=== PATIENT | female | born 1975 | race Caucasian/White ===

== ENCOUNTER 2017-05-10 19:09 | Emergency (ER) | payer OTHER ==
[~2017-05-10] VITALS: Ht 162.6 cm; Wt 137.5 kg
[2017-05-10 19:21] VITALS: TEMP 36.7; Ht 162.6 cm; Wt 137.5 kg
[2017-05-10] MEDS ORDERED: FLUT0.15 NAE (19:42)
[2017-05-10] MEDS ORDERED: SYN150 PO (19:42)
[2017-05-10] MEDS ORDERED: [UNRECOGNIZED DRUG - CODE] PO (19:42)
[2017-05-10] MEDS ORDERED: DPPI400 INJ (19:42)
[2017-05-10] MEDS ORDERED: CALC500T9 PO (19:42)
[2017-05-10] MEDS ORDERED: FERR1TAB13 PO (19:42)
[2017-05-10] MEDS ORDERED: SODIUM CHLORIDE 0.9% 1000ML 2,000 ML IV STA (20:11)
[2017-05-10] MEDS ORDERED: ONDANSETRON INJ 2 MG/ML 2 ML VIAL IV STA (20:11)
--- NOTE | 2017-05-10 20:25 | EMERGENCY ROOM VISIT NOTE ---
History Report prepared by Myra: Giselle Shook Under the Supervision of: Dr. Chela Joseph M.D. First contact with patient: 19:53 Chief Complaint: BACK PAIN Stated Complaint: BACK PAIN History of Present Illness The patient is a 42 year old female who presents to the Emergency Room with complaints of constant back pain beginning 2 days ago. The patient states that she has not been feeling well for the last 4 days. She reports that she has had diarrhea, nausea and abdominal pain and 2 days ago she was seen at the [facility] and was sent home after giving a urine sample that she does not know the results of. The patient states that her back pain has worsened over the last 2 days and is worsened with movement. She notes that she has been urinating less frequently and has been drinking more fluids than usual. The patient states that she has a history of gastric bypass, section, cyst removed, and cholecystectomy. She denies any vomiting and dysuria. Source of History: patient Onset: 2 days ago Position: back Timing: constant Modifying Factors (Worsening): movement Associated Symptoms: + nausea, + abdominal pain, + diarrhea, No vomiting Review of Systems See HPI for pertinent positives & negatives. A total of 10 systems reviewed and were otherwise negative. Past Medical & Surgical Surgical Problems: (1) H/O gastric bypass (2) Hx of cholecystectomy (3) Previous section Family History No pertinent family history stated. Social History Smoking Status: Former Smoker Marital Status: Housing Status: lives with family Current/Historical Medications Scheduled Calcium Carbonate-Vitamin D (Oysco 500+D), 1 TAB PO BID Ferrous Sulfate (Kp Ferrous Sulfate), 325 MG PO BID Fexofenadine HCl (Allergy Relief), 60 MG PO QAM Fluticasone Propionate (Nasal) (Flonase Allergy Relief), 1 SPRAYS RAIZA BID Levothyroxine Sodium (Synthroid), 150 MCG PO QAM Medroxyprogesterone Acetate (Depo-Provera), 1 DOSE INJ Q12WKS Scheduled PRN Oxycodone Immediate Rel Tab (Roxicodone Ir), 1-2 TAB PO Q4H PRN for Severe Pain Allergies Coded Allergies: No Known Allergies (Unverified , 05/10/17) Physical Exam Vital Signs Date Time Temp Pulse Resp B/P (MAP) Pulse Ox O2 Delivery O2 Flow Rate FiO2 05/10/17 23:32 71 16 128/82 96 7/24/17 23:13 71 16 128/82 96 Room Air 05/10/17 21:47 70 20 137/81 98 Room Air 05/10/17 21:03 79 05/10/17 19:21 36.7 76 20 170/111 96 Room Air Physical Exam Vital signs reviewed. General: Well-appearing female, obese, in no significant distress. HEENT: No scleral icterus, PERRLA, neck supple. Atraumatic. Cardiovascular: Regular rate and rhythm, no extra sounds. Pulmonary: Clear to auscultation bilaterally, normal work of breathing. Abdomen: Soft, tender to palpation over the epigastrium, nondistended, positive bowel sounds. Musculoskeletal: Atraumatic, no peripheral edema. Neurologic: Patient awake alert and oriented x 3, full strength in all 4 extremities. Cranial nerves 2 through 12 grossly intact. Skin: Warm, dry, no rash Medical Decision & Procedures ER Provider Diagnostic Interpretation: Radiology results as stated below per my review and radiologist interpretation: CT SCAN OF THE ABDOMEN AND PELVIS WITH IV CONTRAST FINDINGS: Lung bases: The heart is normal in size and without pericardial effusion. A calcified granuloma is seen in the left lower lobe. The lung bases are otherwise clear. Liver: The contrast-enhanced liver is enlarged, measuring 21.2 cm in length. The liver is otherwise normal in contour and attenuation. There is mild central intrahepatic biliary ductal dilatation. The hepatic veins and portal veins are patent. Gallbladder: Surgically absent noting clips in the gallbladder fossa. Spleen: Normal in size and attenuation. Pancreas: Unremarkable. Adrenal glands: Unremarkable. Kidneys: The contrast enhanced kidneys demonstrate mild cortical atrophy. There is a 4 mm obstructing calculus at the right vesicoureteral junction seen on axial image #405. This causes mild right-sided hydronephrosis. There are least 4 additional nonobstructing right renal calculi measuring up to 3 mm. No left or a calculi are seen on this contrast-enhanced examination. The kidneys enhance symmetrically. No left-sided hydronephrosis is seen. Parapelvic cysts are noted on the left. Abdominal vasculature: The abdominal aorta is normal in course and caliber. Stomach and bowel: A small hiatal hernia is identified. There are postoperative changes consistent with a history of Brenna-en-Y gastric bypass surgery. No bowel obstruction is seen. There is mild colonic diverticulosis without CT evidence of acute diverticulitis. The appendix is normal as visualized. Peritoneum: There is no intraperitoneal free air or abdominal ascites. There is diastases of the rectus abdominis musculature. Lymphadenopathy: None. Pelvic viscera: The bladder is normal as visualized. The uterus and adnexa are normal in appearance noting bilateral ovarian follicles. Skeletal structures: No lytic or blastic lesions are seen. IMPRESSION: 1. There is a 4 mm obstructing calculus at the right vesicoureteral junction. This causes only mild right-sided hydronephrosis. 2. At least 4 additional nonobstructing right renal calculi are noted. No left renal calculi are clearly seen. 3. There are postoperative changes from a Brenna-en-Y gastric bypass procedure. No bowel obstruction is identified. 4. Hepatomegaly. 5. Mild colonic diverticulosis without CT evidence of acute diverticulitis. 6. Additional findings as above. Electronically signed by: Chris Velez M.D. 05/10/2017 10:51 PM Dictated Date/Time: 05/10/2017 10:42 PM Laboratory Results 05/10/17 20:20 Red Blood Count 4.70, Mean Corpuscular Volume 88.3, Mean Corpuscular Hemoglobin 28.3, Mean Corpuscular Hemoglobin Concent 32.0, Mean Platelet Volume 10.6, Neutrophils (%) (Auto) 59.6, Lymphocytes (%) (Auto) 21.3, Monocytes (%) (Auto) 17.5, Eosinophils (%) (Auto) 0.7, Basophils (%) (Auto) 0.5, Neutrophils # (Auto ) 3.27, Lymphocytes # (Auto) 1.17, Monocytes # (Auto) 0.96, Eosinophils # (Auto ) 0.04, Basophils # (Auto) 0.03 05/10/17 20:20 Test 05/10/17 20:20 05/10/17 21:52 White Blood Count 5.49 K/uL (4.8-10.8) Red Blood Count 4.70 M/uL (4.2-5.4) Hemoglobin 13.3 g/dL (12.0-16.0) Hematocrit 41.5 % (37-47) Mean Corpuscular Volume 88.3 fL (80-100) Mean Corpuscular Hemoglobin 28.3 pg (25-34) Mean Corpuscular Hemoglobin Concent 32.0 g/dl (32-36) Platelet Count 305 K/uL (130-400) Mean Platelet Volume 10.6 fL (7.4-10.4) Neutrophils (%) (Auto) 59.6 % Lymphocytes (%) (Auto) 21.3 % Monocytes (%) (Auto) 17.5 % Eosinophils (%) (Auto) 0.7 % Basophils (%) (Auto) 0.5 % Neutrophils # (Auto) 3.27 K/uL (1.4-6.5) Lymphocytes # (Auto) 1.17 K/uL (1.2-3.4) Monocytes # (Auto) 0.96 K/uL (0.11-0.59) Eosinophils # (Auto) 0.04 K/uL (0-0.5) Basophils # (Auto) 0.03 K/uL (0-0.2) RDW Standard Deviation 45.7 fL (36.4-46.3) RDW Coefficient of Variation 13.9 % (11.5-14.5) Immature Granulocyte % (Auto) 0.4 % Immature Granulocyte # (Auto) 0.02 K/uL (0.00-0.02) Anion Gap 6.0 mmol/L (3-11) Est Creatinine Clear Calc Drug Dose 133.7 ml/min Estimated GFR () 112.1 Estimated GFR (Non- 96.8 BUN/Creatinine Ratio 17.9 (10-20) Calcium Level 8.8 mg/dl (8.5-10.1) Magnesium Level 2.1 mg/dl (1.8-2.4) Total Bilirubin 0.2 mg/dl (0.2-1) Direct Bilirubin < 0.1 mg/dl (0-0.2) Aspartate Amino Transf (AST/SGOT) 13 U/L (15-37) Alanine Aminotransferase (ALT/SGPT) 23 U/L (12-78) Alkaline Phosphatase 111 U/L (45-117) Total Protein 6.9 gm/dl (6.4-8.2) Albumin 3.2 gm/dl (3.4-5.0) Lipase 143 U/L (73-393) Urine Color YELLOW Urine Appearance CLOUDY (CLEAR) Urine pH 6.0 (4.5-7.5) Urine Specific [place] 1.009 (1.000-1.030) Urine Protein TRACE (NEG) Urine Glucose (UA) NEG (NEG) Urine Ketones NEG (NEG) Urine Occult Blood 3+ (NEG) Urine Nitrite NEG (NEG) Urine Bilirubin NEG (NEG) Urine Urobilinogen NEG (NEG) Urine Leukocyte Esterase NEG (NEG) Urine WBC (Auto) 1-5 /hpf (0-5) Urine RBC (Auto) >30 /hpf (0-4) Urine Hyaline Casts (Auto) 1-5 /lpf (0-5) Urine Epithelial Cells (Auto) >30 /lpf (0-5) Urine Bacteria (Auto) NEG (NEG) Urine Yeast (Auto) PRESENT (NONE PRSENT) Laboratory results per my review. Medications Administered Medications (Trade) Dose Ordered Sig/Kallie Route Start Time Stop Time Status Last Admin Dose Admin Sodium Chloride 2,000 ml @ 999 mls/hr Q2H1M STAT IV 05/10/17 20:11 05/10/17 22:11 DC 05/10/17 20:35 999 MLS/HR Ondansetron HCl (Zofran Inj) 4 mg NOW STAT IV 05/10/17 20:11 05/10/17 20:14 DC 05/10/17 20:35 4 MG Potassium Chloride (Kcl 10 Meq / Wtr) 20 meq NOW STAT IV 05/10/17 21:36 05/10/17 21:37 DC 05/10/17 21:44 20 MEQ Oxycodone HCl (Roxicodone Immediate Rel 5MG Home Pack) 1 homepack UD ONCE PO 05/10/17 23:30 05/10/17 23:31 DC 05/10/17 23:29 1 HOMEPACK ED Course 1952: Past medical records reviewed. The patient was evaluated in room C6. A complete history and physical examination was performed. 2010: Zofran Inj 4mg IV, Sodium Chloride 2000 ml @ 999 mls/hr IV. 2135: Potassium Chloride 20meq IV. 2226: I reevaluated and updated the patient. 2303: I updated and reevaluated the patient. 2: Upon reevaluation, the patient appeared to have improvement of her symptoms. I discussed findings with the patient. She verbalized agreement of the treatment plan. The patient was discharged home. Medical Decision Differential diagnosis includes dehydration, viral illness, UTI, bowel obstruction, , and electrolyte abnormality. This patient was evaluated and appeared to be in no significant distress. She stated she was stuck "15 times" at [facility] yesterday when she was therefore evaluation. They were not able to obtain blood. An EJ was placed by myself. Blood was obtained and IV hydration was initiated by nursing staff. Laboratory work reveals a hypokalemia. Patient was hydrated with 2 L of normal saline solution. Urinalysis is significant for blood. CT scan abdomen and pelvis reveals a 4 mm right ureteral calculus. The patient was informed of the findings. She states she does have a urologist follow-up with. She has had kidney stones in the past. She was discharged with pain medication and will return to the emergency department for worsening of symptoms or any medical concerns. Medication Reconcilliation Current Medication List: was personally reviewed by me Blood Pressure Screening Patient's blood pressure: Elevated blood pressure Blood pressure disposition: Elevated BP felt to be situational Impression Primary Impression: Kidney stone Scribe Attestation The scribe's documentation has been prepared under my direction and personally reviewed by me in its entirety. I confirm that the note above accurately reflects all work, treatment, procedures, and medical decision making performed by me. Departure Information Dispostion Home / Self-Care Prescriptions Oxycodone Immediate Rel Tab (ROXICODONE IR) 5 Mg Tab 1-2 TAB PO Q4H Y for Severe Pain, #24 TAB Prov: Chela Joseph M.D. 05/10/17 Referrals No Doctor, Assigned (PCP) Forms HOME CARE DOCUMENTATION FORM, IMPORTANT VISIT INFORMATION Patient Instructions Kidney Stones - [facility], [facility] Additional Instructions Diagnosis: Kidney stone, right ureteral Strain all of your urine and take the stone for analysis. Increase fluids. Tylenol 650 mg every 6 hours as needed for pain (Maximum 3000 mg Tylenol in 24 hr period). Oxy IR 1-2 tablets every 4-6 hrs as needed for worse pain. No driving, working, or alcohol use with Oxy IR. Follow up with your urologist if it has not passed in 5-7 days or sooner for worsening symptoms. Follow up sooner for fever >101, vomiting, or significant increase in pain not controlled with medication.
[2017-05-10] MEDS ORDERED: OPTIRAY 320 IV PRN (20:30)
[2017-05-10 20:37] LABS: BASO % 0.5 %; BASO ABS # 0.03 K/uL (0-0.2); COMPLETE YES; EOS % 0.7 %; HEMATOCRIT 41.5 % (37-47); IG% 0.4 %; LYMPH % 21.3 %; LYMPH ABS # 1.17 K/uL (1.2-3.4); MEAN CELL VOLUME 88.3 fL (80-100); MEAN CORPUSCULAR HEMOGLOBIN 28.3 pg (25-34); MEAN PLATELET VOLUME 10.6 fL (7.4-10.4); MONO % 17.5 %; NEUT % 59.6 %; PLATELET COUNT 305 K/uL (130-400); WHITE BLOOD COUNT 5.49 K/uL (4.8-10.8)
[2017-05-10 20:53] LABS: ALT/SGPT 23 U/L (12-78); BLOOD UREA NITROGEN 14 mg/dl (7-18); BUN/CREATININE RATIO 17.9 (10-20); CALCIUM 8.8 mg/dl (8.5-10.1); CARBON DIOXIDE 29 mmol/L (21-32); CHLORIDE 105 mmol/L (98-107); CREATININE 0.76 mg/dl (0.60-1.20); GLUCOSE 111 mg/dl (70-99); MAGNESIUM 2.1 mg/dl (1.8-2.4); POTASSIUM 3.1 mmol/L (3.5-5.1); SODIUM 140 mmol/L (136-145)
[2017-05-10 20:56] LABS: ALKALINE PHOSPHATASE 111 U/L (45-117); AST/SGOT 13 U/L (15-37)
[2017-05-10] MEDS ORDERED: POTASSIUM CHLORIDE 10 MEQ / 100ML WTR IV STA (21:36)
[2017-05-10 22:01] LABS: URINE APPEARANCE CLOUDY (CLEAR); URINE BILIRUBIN NEG (NEG); URINE COLOR YELLOW; URINE EPITHELIAL CELL AUTO >30 /lpf (0-5); URINE NITRITE NEG (NEG); URINE SPECIFIC GRAVITY 1.009 (1.000-1.030); UROBILINOGEN NEG (NEG); ZZUR CULT IF INDIC CLEAN CATCH YES
[2017-05-10 22:02] LABS: MANUAL MICROSCOPIC REQUIRED? NO; REVIEW REQ? YES
--- NOTE | 2017-05-10 22:52 | DIAGNOSTIC IMAGING REPORT ---
CT SCAN OF THE ABDOMEN AND PELVIS WITH IV CONTRAST CLINICAL HISTORY: Nausea. Generalized abdominal pain. COMPARISON STUDY: No priors. TECHNIQUE: Following the IV administration of 116 cc of Optiray 320, CT scan of the abdomen and pelvis is performed from the lung bases to the proximal femora. Images are reviewed in the axial, sagittal, and coronal planes. IV contrast was administered without complication. Automated dose control exposure was utilized. A dose lowering technique was utilized adhering to the principles of ALARA. The examination is degraded by large body habitus, and by streak artifact from the body wall abutting the CT gantry. CT DOSE: 1722.93 mGy.cm FINDINGS: Lung bases: The heart is normal in size and without pericardial effusion. A calcified granuloma is seen in the left lower lobe. The lung bases are otherwise clear. Liver: The contrast-enhanced liver is enlarged, measuring 21.2 cm in length. The liver is otherwise normal in contour and attenuation. There is mild central intrahepatic biliary ductal dilatation. The hepatic veins and portal veins are patent. Gallbladder: Surgically absent noting clips in the gallbladder fossa. Spleen: Normal in size and attenuation. Pancreas: Unremarkable. Adrenal glands: Unremarkable. Kidneys: The contrast enhanced kidneys demonstrate mild cortical atrophy. There is a 4 mm obstructing calculus at the right vesicoureteral junction seen on axial image #405. This causes mild right-sided hydronephrosis. There are least 4 additional nonobstructing right renal calculi measuring up to 3 mm. No left or a calculi are seen on this contrast-enhanced examination. The kidneys enhance symmetrically. No left-sided hydronephrosis is seen. Parapelvic cysts are noted on the left. Abdominal vasculature: The abdominal aorta is normal in course and caliber. Stomach and bowel: A small hiatal hernia is identified. There are postoperative changes consistent with a history of Brenna-en-Y gastric bypass surgery. No bowel obstruction is seen. There is mild colonic diverticulosis without CT evidence of acute diverticulitis. The appendix is normal as visualized. Peritoneum: There is no intraperitoneal free air or abdominal ascites. There is diastases of the rectus abdominis musculature. Lymphadenopathy: None. Pelvic viscera: The bladder is normal as visualized. The uterus and adnexa are normal in appearance noting bilateral ovarian follicles. Skeletal structures: No lytic or blastic lesions are seen. IMPRESSION: 1. There is a 4 mm obstructing calculus at the right vesicoureteral junction. This causes only mild right-sided hydronephrosis. 2. At least 4 additional nonobstructing right renal calculi are noted. No left renal calculi are clearly seen. 3. There are postoperative changes from a Brenna-en-Y gastric bypass procedure. No bowel obstruction is identified. 4. Hepatomegaly. 5. Mild colonic diverticulosis without CT evidence of acute diverticulitis. 6. Additional findings as above. Electronically signed by: Chris Velez M.D. 05/10/2017 10:51 PM Dictated Date/Time: 05/10/2017 10:42 PM
[2017-05-10] MEDS ORDERED: OXYC1TAB3 PO (23:20)
[2017-05-10] MEDS ORDERED: OXYCODONE IR HOME PACK PO ONE (23:30)
[2017-05-10 23:32] VITALS: BP 128/82; PULSE 71; O2SAT 96
== END 2017-05-10 23:34 | disposition home or self-care (01) ==
LOC: MERGE 19:13 → C.EDB 19:13 → C.EDC 23:34
DX: N13.2 Hydronephrosis with renal and ureteral calculous obstruction (principal); Z98.84 Bariatric surgery status; Z90.49 Acquired absence of other specified parts of digestive tract; Z87.891 Personal history of nicotine dependence; E66.9 Obesity, unspecified; Z68.43 Body mass index [BMI] 50.0-59.9, adult; Z79.899 Other long term (current) drug therapy; Z79.3 Long term (current) use of hormonal contraceptives

== ENCOUNTER 2023-06-12 12:36 | Observation (INO) ==
[2023-06-12 13:26] LABS: Basophils # (auto) 0.03 K/uL (0.00-0.20); Basophils % (auto) 0.3 %; Eosinophils # (auto) 0.13 K/uL (0.00-0.50); Eosinophils % (auto) 1.5 %; Hematocrit (blood only) 39.7 % (37.0-47.0); Hemoglobin 12.9 g/dl (12.0-16.0); Immature Granulocytes # (auto) 0.03 K/uL (0.01-0.20); Immature Granulocytes % (auto) 0.3 %; Lymphocytes % (auto) 10.3 %; Mean Corpuscular Hemoglobin 29.5 pg (25.0-34.0); Mean Corpuscular Hgb Conc 32.5 g/dL (32.0-36.0); Mean Corpuscular Volume 90.6 fL (80.0-100.0); Mean Platelet Volume 10.8 fL (9.4-12.4); Monocytes # (auto) 0.41 K/uL (0.11-0.59); Monocytes % (auto) 4.7 %; Neutrophils # (auto) 7.22 K/uL (1.40-6.50); Neutrophils % (auto) 82.9 %; Platelet Count 262 K/uL (130-400); RDW Coefficient of Variation 13.6 % (11.5-14.5); RDW Standard Deviation 45.3 fL (36.4-46.3); Red Blood Count 4.38 M/uL (4.20-5.40); White Blood Count 8.72 K/ul (4.8-10.8)
[2023-06-12] MEDS ORDERED: SODIUM CHLORIDE 0.9% 1000ML 1,000 ML IV ONE (13:50)
[2023-06-12 13:55] LABS: Albumin Globulin Ratio 1.5 (0.9-2); Albumin Level 4.4 gm/dl (3.4-5.0); BUN Creatinine Ratio 26.8 (10-20); Bilirubin,Total 0.4 mg/dl (0.2-1.0); Calcium 9.3 mg/dl (8.6-10.3); Creatinine Clr Calc Pharmacy 185.4 ml/min; Est GFR (African American) 127.8 ml/min; Est GFR (Non-African American) 110.3 ml/min; Globulin 2.9 gm/dl (2.5-4.0); Potassium 4.1 mmol/L (3.5-5.1); Total Protein 7.3 gm/dl (6.0-8.3)
--- NOTE | 2023-06-12 13:56 | XRay Report ---
XR chest 1V portable CLINICAL HISTORY: Chest pain, nonspecific COMPARISON STUDY: Chest radiograph June 06, 2023. Chest CTA June 07, 2023. FINDINGS: Lung volumes are normal. Lungs are clear. There is no pneumothorax or pleural effusion. Mil d cardiomegaly is unchanged. Mediastinal contours are normal. There is no evidence for pulmonary jorge a. IMPRESSION: No acute cardiopulmonary findings. No change in appearance of the chest. ACT 112: Negative or not required by law. Electronically signed by: Ravin Dick M.D. 06/12/2023 1:54 PM
[2023-06-12] MEDS ORDERED: ONDANSETRON INJ 2 MG/ML 2 ML VIAL IV STA (13:58)
[2023-06-12] MEDS ORDERED: LORazepam 2 MG/1 ML VIAL IV STA (13:58)
[2023-06-12 14:00] LABS: Partial Thromboplastin Time 28.2 Seconds (21.0-31.0); Prothrombin Time 10.8 Seconds (9.0-12.0)
[2023-06-12 14:03] LABS: Troponin I High Sensitivity 4.8 pg/ml (0-14)
--- NOTE | 2023-06-12 14:04 | Emergency Department Note ---
History of Present Illness General Chief complaint: Vertigo Stated complaint: CHEST PAIN, VOMITING Time Seen by Provider: 06/12/23 13:47 History of Present Illness Maximum Pain Intensity: 4 48-year-old female presents emergency department with an onset of vertigo that started this morning when she woke up. Patient states that she was extremely dizzy had nausea and dry heaves. Patient denies any specific vomiting. Patient of note was in our emergency department 4 days ago for upper abdominal pain and had a full cardiac and abdominal work-up at that time that was unremarkable. Patient states that she has had a prior history of vertigo she used to use meclizine and physical therapy. Patient does relate tinnitus and decreased hearing in both years which is chronic. Patient states when she turns her head she gets more vertiginous. Patient denies slurred speech blurred vision shortness of breath abdominal pain. Patient states after dry heaving she had substernal chest pressure that was nonradiating. Patient denies any specific abdominal pain denies diarrhea denies urinary symptoms. Denies back pain. Patient denies any current neck pain or recent trauma. There are no other mitigating or alleviating factors Home Medications Medication Instructions Recorded Confirmed Type medroxyprogesterone 150 mg/mL 150 mg IM DIRECTED 09/13/19 06/12/23 History intramuscular suspension (Depo-Provera) amlodipine 5 mg tablet 5 mg PO HS 02/02/23 06/12/23 History colchicine (gout) 0.6 mg tablet 0.6 mg PO BID #180 tabs 06/07/23 06/12/23 Rx diclofenac sodium 1 % topical gel 2 g topical DIRECTED PRN Pain 06/07/23 06/12/23 History ibuprofen 200 mg tablet 400 mg PO Q8H Pain 06/07/23 06/12/23 History levothyroxine 50 mcg tablet 50 mcg PO QAM 06/07/23 06/12/23 History lisinopril 5 mg tablet 5 mg PO QAM 06/07/23 06/12/23 History oxycodone 10 mg tablet 10 mg PO DAILY PRN Pain 06/07/23 06/12/23 History pediatric multivitamin 1 tab PO DAILY 06/07/23 06/12/23 History no.226-ferrous sulfate 18 mg chewable tablet (Flintstones with Extra Iron) Allergies Allergy/AdvReac Type Severity Reaction Status Date / Time adhesive tape Allergy Intermediate SKIN WILL Verified 06/12/23 15:31 PEEL OFF IF LEFT ON TOO LONG Past Med/Surg History Medical History (Updated 06/12/23 @ 15:36 by Leandro Shah DO) Cardiac murmur No h/o echo, noted soft I/ at [facility] on exam at [facility]. Diverticular disease MILD, NO H/O INFECTION Heart palpitations Occasional sensation of heart racing. Hypothyroidism Osteoarthritis Sleep apnea DOESN'T USE CPAP, CHRONIC SINUSITIS, AND FEELS ASYMPTOMATIC. Thyroid cancer S/P TOTAL THYROIDECTOMY Vertigo Surgical History H/O gastric bypass History of bilateral tubal ligation JUST RIGHT SIDE WITH OVARY History of carpal tunnel release BILAT History of thyroidectomy, total History of tonsillectomy Hx of cholecystectomy Hx of ovarian cystectomy Previous section Family History Father Diabetes Mother Diabetes Grandmother Stroke Grandfather Stroke Social History Smoking Status: Former smoker Second Hand Exposure: Yes; Do You Dip or Chew Tobacco: No; Hx Alcohol Use: Yes (very rare) Hx Substance Use: No Preferred Language: Mohawk Communication Ability: Effective Destination Sign Repairer Required: No Beliefs That Will Affect Care: None Current Living Situation: Spouse and Family Feels Safe at Home: Yes Assistive Devices: None Review of Systems A total of 10 systems reviewed and were otherwise negative Constitutional: no fever Ear, Nose, Mouth, Throat: + tinnitus and + hearing loss; no sinus pain/pressure Respiratory: no cough Cardiovascular: + chest pain Gastrointestinal: + nausea Physical Exam Vital Signs Vital Signs - 24 hr 06/12/23 12:41 06/12/23 13:24 06/12/23 13:35 Temperature 36.4 C L Temperature Source Oral Pulse Rate 57 L 52 L Respiratory Rate 20 Respiratory Effort / Characteristics Non-Labored Spontaneous Respiratory Depth Normal Respiratory Pattern Regular Blood Pressure 143/85 H Blood Pressure Mean 104 Pulse Oximetry 94 98 Oxygen Delivery Method Room Air Room Air Sepsis Recent Fever Within 48 Hours No Sepsis New/Unexplained Change in Mental Status N/A Sepsis Action Taken by Nursing No Action Required 06/12/23 13:30 06/12/23 13:31 06/12/23 13:31 Temperature Temperature Source Pulse Rate 62 63 Respiratory Rate 24 15 Respiratory Effort / Characteristics Respiratory Depth Respiratory Pattern Blood Pressure 151/79 H Blood Pressure Mean 103 Pulse Oximetry Oxygen Delivery Method Sepsis Recent Fever Within 48 Hours Sepsis New/Unexplained Change in Mental Status Sepsis Action Taken by Nursing 06/12/23 13:40 06/12/23 13:50 06/12/23 14:00 Temperature Temperature Source Pulse Rate 43 L 52 L Respiratory Rate 18 14 Respiratory Effort / Characteristics Respiratory Depth Respiratory Pattern Blood Pressure 147/84 H Blood Pressure Mean 105 Pulse Oximetry Oxygen Delivery Method Sepsis Recent Fever Within 48 Hours Sepsis New/Unexplained Change in Mental Status Sepsis Action Taken by Nursing 06/12/23 14:00 06/12/23 14:10 06/12/23 14:32 Temperature Temperature Source Pulse Rate 57 L 46 L 68 Respiratory Rate 14 14 14 Respiratory Effort / Characteristics Respiratory Depth Respiratory Pattern Blood Pressure Blood Pressure Mean Pulse Oximetry Oxygen Delivery Method Sepsis Recent Fever Within 48 Hours Sepsis New/Unexplained Change in Mental Status Sepsis Action Taken by Nursing 06/12/23 14:40 Temperature Temperature Source Pulse Rate 65 Respiratory Rate 18 Respiratory Effort / Characteristics Respiratory Depth Respiratory Pattern Blood Pressure Blood Pressure Mean Pulse Oximetry Oxygen Delivery Method Sepsis Recent Fever Within 48 Hours Sepsis New/Unexplained Change in Mental Status Sepsis Action Taken by Nursing GENERAL: Patient is awake alert in no acute distress patient is resting comfortably and showing no signs of anxiety EYES: The conjunctivae are clear. The pupils are round and reactive. EARS, NOSE, MOUTH AND THROAT: The nose is without any evidence of any deformity. Mucous membranes are moist. Tongue is midline. TMs are clear bilaterally NECK: The neck is nontender and supple. Full range of motion nontender no meningismus RESPIRATORY: Normal respiratory effort is noted there is no evidence of wheezing rhonchi or rales CARDIOVASCULAR: Regular rate and rhythm noted there no murmurs rubs or gallops normal S1 normal S2. GASTROINTESTINAL: The abdomen is soft. Abdomen is nontender. No rebound rigidity or guarding BACK: No midline tenderness or or step-off noted range of motion in flexion extension as well as rotation no signs of muscle spasm noted MUSCULOSKELETAL/EXTREMITIES: There is no evidence of gross deformity full range of motion is noted in the hips and shoulders. SKIN: There is no obvious evidence of any rash. There are no petechiae, pallor or cyanosis noted. NEUROLOGIC: Patient is awake alert and oriented x3 strength is symmetric; no nystagmus, NIH of 0, full range of motion of the upper and lower extremities, normal speech Course Reevaluation(s) Reevaluation #1: On repeat examination the patient states that she felt somewhat improved. Patient however has had episodes of bradycardia. Patient states that she still feels nauseated however. Patient has a nonfocal neurologic exam however, with an NIH of 0 Time: 15:35 Consultations Consultation #1: Spoke with radiology Dr. 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 H[facility] for [facility] for intractable vertigo and bradycardia Time: 15:35 Administered Medications Discontinued Medications Sodium Chloride (Nss 1000ml) 1,000 mls @ 999 mls/hr IV .Q1H1M ONE Stop: 06/12/23 14:50 Last Infusion: 06/12/23 15:15 Dose: 0 mls/hr Documented By: Admin: 06/12/23 14:14 Dose: 999 mls/hr Documented By: SAMUEL Lorazepam (Lorazepam 2 Mg/1 Ml Vial) 0.5 mg IV NOW STA Stop: 06/12/23 13:59 Last Admin: 06/12/23 14:14 Dose: 0.5 mg Documented By: SAMUEL Ondansetron HCl (Ondansetron Inj 2 Mg/Ml 2 Ml Vial) 4 mg IV NOW STA Stop: 06/12/23 13:59 Last Admin: 06/12/23 14:14 Dose: 4 mg Documented By: SAMUEL Medical Decision Making Medical Records Attestation: I reviewed the patient's medical records. Home Medications Current Medication List: was personally reviewed by me Laboratory Data Attestation: I reviewed the patient's lab results. Labs interpreted by me are unremarkable 06/12/23 12:44 06/12/23 12:44 Lab Results 06/12/23 06/12/23 06/12/23 Range/Units 12:44 12:44 12:44 WBC 8.72 (4.8-10.8) K/ul RBC 4.38 (4.20-5.40) M/uL Hgb 12.9 (12.0-16.0) g/dl Hct 39.7 (37.0-47.0) % MCV 90.6 (80.0-100.0) fL MCH 29.5 (25.0-34.0) pg MCHC 32.5 (32.0-36.0) g/dL RDW Std Deviation 45.3 (36.4-46.3) fL RDW Coeff of Valerie 13.6 (11.5-14.5) % Plt Count 262 (130-400) K/uL MPV 10.8 (9.4-12.4) fL Immature Gran % (Auto) 0.3 % Neut % (Auto) 82.9 % Lymph % (Auto) 10.3 % [place] % (Auto) 4.7 % Eos % (Auto) 1.5 % Baso % (Auto) 0.3 % Neut # (Auto) 7.22 H (1.40-6.50) K/uL Lymph # (Auto) 0.90 L (1.20-3.40) K/uL [place] # (Auto) 0.41 (0.11-0.59) K/uL Eos # (Auto) 0.13 (0.00-0.50) K/uL Baso # (Auto) 0.03 (0.00-0.20) K/uL Immature Gran # (Auto) 0.03 (0.01-0.20) K/uL PT 10.8 (9.0-12.0) Seconds INR 1.0 (0.9-1.1) APTT 28.2 (21.0-31.0) Seconds PTT Ratio 1.0 Sodium 136 (136-145) mmol/L Potassium 4.1 (3.5-5.1) mmol/L Chloride 104 (98-107) mmol/L Carbon Dioxide 26 (21-32) mmol/L Anion Gap 6 (3-11) BUN 15 (6-23) mg/dl Creatinine 0.56 L (0.6-1.2) mg/dl Est Cr Clr Drug Dosing 185.4 ml/min Est GFR ( Amer) 127.8 ml/min Est GFR (Non-Af Amer) 110.3 ml/min BUN/Creatinine Ratio 26.8 H (10-20) Glucose 116 H (70-99(Fasting)) mg/dl Calcium 9.3 (8.6-10.3) mg/dl Magnesium (1.7-2.4) mg/dl Total Bilirubin 0.4 (0.2-1.0) mg/dl AST 14 (13-39) U/L ALT 32 (7-52) U/L Alkaline Phosphatase 141 H (34-104) U/L Troponin I High Sens 4.8 (0-14) pg/ml Total Protein 7.3 (6.0-8.3) gm/dl Albumin 4.4 (3.4-5.0) gm/dl Globulin 2.9 (2.5-4.0) gm/dl Albumin/Globulin Ratio 1.5 (0.9-2) / Range/Units 12:44 WBC (4.8-10.8) K/ul RBC (4.20-5.40) M/uL Hgb (12.0-16.0) g/dl Hct (37.0-47.0) % MCV (80.0-100.0) fL MCH (25.0-34.0) pg MCHC (32.0-36.0) g/dL RDW Std Deviation (36.4-46.3) fL RDW Coeff of Valerie (11.5-14.5) % Plt Count (130-400) K/uL MPV (9.4-12.4) fL Immature Gran % (Auto) % Neut % (Auto) % Lymph % (Auto) % [place] % (Auto) % Eos % (Auto) % Baso % (Auto) % Neut # (Auto) (1.40-6.50) K/uL Lymph # (Auto) (1.20-3.40) K/uL [place] # (Auto) (0.11-0.59) K/uL Eos # (Auto) (0.00-0.50) K/uL Baso # (Auto) (0.00-0.20) K/uL Immature Gran # (Auto) (0.01-0.20) K/uL PT (9.0-12.0) Seconds INR (0.9-1.1) APTT (21.0-31.0) Seconds PTT Ratio Sodium (136-145) mmol/L Potassium (3.5-5.1) mmol/L Chloride (98-107) mmol/L Carbon Dioxide (21-32) mmol/L Anion Gap (3-11) BUN (6-23) mg/dl Creatinine (0.6-1.2) mg/dl Est Cr Clr Drug Dosing ml/min Est GFR ( Amer) ml/min Est GFR (Non-Af Amer) ml/min BUN/Creatinine Ratio (10-20) Glucose (70-99(Fasting)) mg/dl Calcium (8.6-10.3) mg/dl Magnesium 2.2 (1.7-2.4) mg/dl Total Bilirubin (0.2-1.0) mg/dl AST (13-39) U/L ALT (7-52) U/L Alkaline Phosphatase (34-104) U/L Troponin I High Sens (0-14) pg/ml Total Protein (6.0-8.3) gm/dl Albumin (3.4-5.0) gm/dl Globulin (2.5-4.0) gm/dl Albumin/Globulin Ratio (0.9-2) Imaging Data Attestation: I personally reviewed and interpreted this imaging study as follows: My Impression: Chest x-ray interpreted by me negative for infiltrate CT of the brain per my interpretation is negative for intracranial hemorrhage Radiologist's Impression: Chest X-Ray 06/12/23 12:44 XR chest 1V portable CLINICAL HISTORY: Chest pain, nonspecific COMPARISON STUDY: Chest radiograph June 06, 2023. Chest CTA June 07, 2023. FINDINGS: Lung volumes are normal. Lungs are clear. There is no pneumothorax or pleural effusion. Mild cardiomegaly is unchanged. Mediastinal contours are normal. There is no evidence for pulmonary edema. IMPRESSION: No acute cardiopulmonary findings. No change in appearance of the chest. ACT 112: Negative or not required by law. Electronically signed by: Ravin Dick M.D. 06/12/2023 1:[address] 06/12/23 13:58 CT OF THE HEAD WITHOUT CONTRAST CLINICAL HISTORY: vertigo COMPARISON STUDY: No previous studies for comparison. CT DOSE: 625.80 mGy.cm TECHNIQUE: Helical axial images of the head were obtained without IV contrast. Automated exposure control was utilized for the study. A dose lowering technique was utilized adhering to the principles of ALARA. FINDINGS: No acute intracranial hemorrhage, midline shift or mass effect is pr esent. The ventricular system is unremarkable. The basal cisterns are patent. No extra-axial collections are present. There are no findings to suggest acute dural sinus thrombosis or acute territorial infarct. No significant calvarial abnormalities are present. IMPRESSION: No acute intracranial findings. ACT 112: Negative or not required by law. Electronically signed by: Ravin Dick M.D. 06/12/2023 2:58 PM ECG Data Attestation: I personally reviewed and interpreted this ECG as follows: Additional Comments: EKG interpreted by me sinus bradycardia rate of 46, normal intervals normal axis, no obvious ST segment elevation or depression; EKG was compared to 06/06/2023 which showed a normal sinus rhythm with a rate in the 70s Telemetry was ordered by me patient has a rate of 72 and sinus rhythm Patient stated to me that she had prior episodes of low heart rate to the 50s MDM Narrative Medical decision making differential diagnosis includes vertigo, electrolyte abnormality, dehydration, metabolic derangement, cardiac dysrhythmia Check labs, give IV fluids IV Zofran IV Ativan, CT brain. I did speak with radiology regarding an incidental finding on the CT angio of the chest 4 days prior. Patient has vertiginous symptoms, NIH is 0, bradycardia with an unknown etiology at this time. Given IV fluids, Zofran, Ativan. The etiology of the patient's bradycardia is unknown at this time. Patient will be admitted for further analysis and treatment Impression & Plan Vertigo, Bradycardia Discharge Plan Visit Data Chief Complaint: Vertigo Stated Complaint: CHEST PAIN, VOMITING ED Provider: Leandro Shah Discharge Problem: Vertigo, Bradycardia Patient Disposition: Admitted As Inpatient Forms Stand Alone Forms: My [facility] Prescriptions Prescriptions: No Action ibuprofen 200 mg tablet 400 mg PO Q8H colchicine (gout) 0.6 mg tablet 0.6 mg PO BID Qty: 180 0RF amlodipine 5 mg tablet 5 mg PO HS medroxyprogesterone [Depo-Provera] 150 mg/mL Suspension 150 mg IM DIRECTED Rx Instructions: Q 10-12 WEEKS levothyroxine 50 mcg tablet 50 mcg PO QAM lisinopril 5 mg tablet 5 mg PO QAM diclofenac sodium 1 % gel 2 g TOPICAL DIRECTED PRN (Reason: Pain) oxycodone 10 mg tablet 10 mg PO DAILY PRN (Reason: Pain) Flintstones with Extra Iron 18 mg iron Tablet,Chewable 1 tab PO DAILY Referrals Referrals: Cortney Sarabia CRNP [Primary Care Provider] -
--- NOTE | 2023-06-12 14:59 | CT Scan Report ---
CT OF THE HEAD WITHOUT CONTRAST CLINICAL HISTORY: vertigo COMPARISON STUDY: No previous studies for comparison. CT DOSE: 625.80 mGy.cm TECHNIQUE: Helical axial images of the head were obtained without IV contrast. Automated exposure con trol was utilized for the study. A dose lowering technique was utilized adhering to the principles o f ALARA. FINDINGS: No acute intracranial hemorrhage, midline shift or mass effect is present. The ventricular system is unremarkable. The basal cisterns are patent. No extra-axial collections are present. There are no findings to suggest acute dural sinus thrombosis or acute territorial infarct. No significant calvarial abnormalities are present. IMPRESSION: No acute intracranial findings. ACT 112: Negative or not required by law. Electronically signed by: Ravin Dick M.D. 06/12/2023 2:58 PM
--- NOTE | 2023-06-12 16:46 | History & Physical Report ---
Date of Service June 12, 2023 Assessment & Plan (1) Vertigo: Plan: -Admit to med/tele -Currently stable -Patient has a history of recurrent vertigo, had another episode this am which caused nausea and dry-heaving, this exacerbated her vertigo causing her to come to the ED -At this time the etiology of her vertigo is unknown, however, she has the triad of vertigo, tinnitus, and ear fullness/decreased hearing during these attacks, making it seem more like Meniere's -CT of the head was negative, no other focal neuro defects -Will treat symptomatically for now with IV fluids, prn zofran, and low dose ativan as it has been more effective than meclizine -Could consider lifestyle changes on DC with possible ENT referral if indicated -SC lovenox for DVT PPX -Clear liquid diet for now, advance as tolerated -AM CBC, CMP, Mag (2) Chest pain: Plan: -Patient has a long history of chronic epigastric/substernal chest pain -Her pain was exacerbated after she started to dry heave -Cardiac workup here has been negative, had a negative stress echo on 06/07 for her chronic chest pain -Low suspicion for cardiac etiology at this time -Likely due to esophagitis/gastritis -Will start daily IV famotidine and protonix for now, monitor for improvement -States that GI cocktails have made her nauseous in the past, will hold -Continue home colchicine -Continue to monitor on tele (3) Bradycardia: Plan: -Was bradycardic with HR in the 40-50's earlier in the ED -Currently in NSR with HR in the 60's-70's -Likely due to her nausea and dry-heaving -Is not on rate limiting medications -Continue to monitor on tele for now (4) Hypertension: Plan: -Stable -Continue amlodipine and lisinopril (5) Obstructive sleep apnea: Plan: -Does not tolerate HS CPAP Plan The patient was discussed with Dr. Horton at the time of the admission History of Present Illness Chief Complaint: Vertigo, nausea, vomiting, chest pain Primary Care Provider: DOLORES Carrion Carla Daniel is a 48 year old female with a PMH significant for previous thyroid cancer S/P thyroidectomy in 2016, HTN, WILLIE (non-compliant with HS CPAP), chronic BL chest/epigastric pain, heart palpitations, who presented to the [facility] ED on 06/12 for vertigo, vomiting, and chest pain. The patient was noted to be bradycardic with HR in the 40-50's but otherwise stable. Labs including CBC, CMP, and TSH were significant for a TSH of 4.89. Ct of the head was read as "No acute intracranial findings.". Chest xray was read as "No acute cardiopulmonary findings. No change in appearance of the chest.". Prior to admission the patient was given 0.5 mg IV ativan, 4 mg IV zofran, and 1L NSS. At the time of the exam the patient was lying in bed with her eyes closed, in no acute distress. She states that she has a long history of vertigo. This am she was in her normal state of health when she woke. She started going about her day and her vertigo started. This consists of dizziness, the room spinning when her eyes are open, sensation of ear fullness and tinnitus. She states that she has been prescribed meclizine in the past, but this does not help her symptoms. As her vertigo symptoms progressed she developed nausea and started to dry heave, she never had an actual episode of emesis. Since dry heaving the patient has been having increased cramping in the epigastric region. She states that this is similar to her chronic epigastric/chest pain but more severe and cramping. The initial treatment in the ED resolved her symptoms, however, once she got up to go to the bathroom her symptoms returned. Please refer to Dr. Horton's attestation for any changes to the treatment plan Allergies Allergy/AdvReac Type Severity Reaction Status Date / Time adhesive tape Allergy Intermediate SKIN WILL Verified 06/12/23 15:31 PEEL OFF IF LEFT ON TOO LONG Home Medications Medication Instructions Recorded Confirmed Type medroxyprogesterone 150 mg/mL 150 mg IM DIRECTED 09/13/19 06/12/23 History intramuscular suspension (Depo-Provera) amlodipine 5 mg tablet 5 mg PO HS 02/02/23 06/12/23 History colchicine (gout) 0.6 mg tablet 0.6 mg PO BID #180 tabs 06/07/23 06/12/23 Rx diclofenac sodium 1 % topical gel 2 g topical DIRECTED PRN Pain 06/07/23 06/12/23 History ibuprofen 200 mg tablet 400 mg PO Q8H Pain 06/07/23 06/12/23 History levothyroxine 50 mcg tablet 50 mcg PO QAM 06/07/23 06/12/23 History lisinopril 5 mg tablet 5 mg PO QAM 06/07/23 06/12/23 History oxycodone 10 mg tablet 10 mg PO DAILY PRN Pain 06/07/23 06/12/23 History pediatric multivitamin 1 tab PO DAILY 06/07/23 06/12/23 History no.226-ferrous sulfate 18 mg chewable tablet (Flintstones with Extra Iron) Past Med/Surg History Medical History (Updated 06/12/23 @ 15:36 by Leandro Shah DO) Cardiac murmur No h/o echo, noted soft I/ at [facility] on exam at [facility]. Diverticular disease MILD, NO H/O INFECTION Heart palpitations Occasional sensation of heart racing. Hypothyroidism Osteoarthritis Sleep apnea DOESN'T USE CPAP, CHRONIC SINUSITIS, AND FEELS ASYMPTOMATIC. 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 Beliefs That Will Affect Care: None Current Living Situation: Spouse and Family Other Information That Helps Us Care for You: No Feels Safe at Home: Yes Safety Concerns: Feels Safe At This Time Assistive Devices: None Physical Exam Physical Exam: Physical Exam: General: In no acute distress, stated age, non-toxic appearing HEENT: Normocephalic, atraumatic, no scleral icterus, pupils around round, symmetrical, and reactive to light, dry mucus membranes, trachea midline, no thyromegaly Chest/Pulm: No respiratory distress, symmetrical chest expansion, clear breath sounds throughout Cardiac: RRR, no murmurs noted Abdomen: Negative for ascites and bruising, normoactive bowel sounds, soft, tender to palpation in the epigastric region Musculoskeletal: Symmetrical and without signs of acute trauma, upper and lower extremities with full ROM, no atrophy, spasticity, or flaccidity Extremities: Radial, dorsalis pedis, and posterior tibial pulses are intact and symmetrical, no edema noted in the BL LE's Skin: Warm, dry, no rashes , lesions, or scars noted Neuro: Alert and oriented to person, place, month, year, and president, no focal defects, CN II-XII tested patient noted to have left horizontal nystagmus BL, otherwise no acute findings, finger to nose test negative, no tremors noted Psych: No acute distress, calm and cooperative during the exam Results & Data Results & Data Vital Signs (Past 12 Hours) Vital Signs Temp Pulse Resp BP Pulse Ox O2 Del Method 06/12/23 14:40 65 18 06/12/23 14:32 68 14 06/12/23 14:10 46 L 14 06/12/23 14:00 57 L 14 06/12/23 14:00 147/84 H 06/12/23 13:50 52 L 14 06/12/23 13:40 43 L 18 06/12/23 13:31 151/79 H 06/12/23 13:31 63 15 06/12/23 13:30 62 24 06/12/23 13:35 52 L 06/12/23 13:24 98 Room Air 06/12/23 12:41 36.4 C L 57 L 20 143/85 H 94 Room Air Laboratory Results Abnormal lab results 06/12/23 06/12/23 06/12/23 Range/Units 12:44 12:44 13:10 Neut # (Auto) 7.22 H (1.40-6.50) K/uL Lymph # (Auto) 0.90 L (1.20-3.40) K/uL Creatinine 0.56 L (0.6-1.2) mg/dl BUN/Creatinine Ratio 26.8 H (10-20) Glucose 116 H (70-99(Fasting)) mg/dl Alkaline Phosphatase 141 H (34-104) U/L TSH 4.849 H (0.300-4.500) uIu/ml Diagnostic Findings Chest X-Ray 06/12/23 12:44 XR chest 1V portable CLINICAL HISTORY: Chest pain, nonspecific COMPARISON STUDY: Chest radiograph June 06, 2023. Chest CTA June 07, 2023. FINDINGS: Lung volumes are normal. Lungs are clear. There is no pneumothorax or pleural effusion. Mild cardiomegaly is unchanged. Mediastinal contours are normal. There is no evidence for pulmonary edema. IMPRESSION: No acute cardiopulmonary findings. No change in appearance of the chest. ACT 112: Negative or not required by law. Electronically signed by: Ravin Dick M.D. 06/12/2023 1:[address] 06/12/23 13:58 CT OF THE HEAD WITHOUT CONTRAST CLINICAL HISTORY: vertigo COMPARISON STUDY: No previous studies for comparison. CT DOSE: 625.80 mGy.cm TECHNIQUE: Helical axial images of the head were obtained without IV contrast. Automated exposure control was utilized for the study. A dose lowering technique was utilized adhering to the principles of ALARA. FINDINGS: No acute intracranial hemorrhage, midline shift or mass effect is present. The ventricular system is unremarkable. The basal cisterns are patent. No extra-axial collections are present. There are no findings to suggest acute dural sinus thrombosis or acute territorial infarct. No significant calvarial abnormalities are present. IMPRESSION: No acute intracranial findings. ACT 112: Negative or not required by law. Electronically signed by: Ravin Dick M.D. 06/12/2023 2:58 PM ECG Additional Comments: Sinus bradycardia Otherwise normal ECG When compared with ECG of 06-JUN-2023 22:43, Vent. rate has decreased BY 28 BPM Code Status & VTE Plan Code Status Full code VTE Prophylaxis Plan VTE Prophylaxis will be ordered: Yes Supervising Physician Co-Signing Physician Notes I personally saw and examined the patient. I verified all hendrix points and agree with Power Meade PA-C with the following exceptions and/or additions: 48 year old with recurrent vertigo with tinnitus. Suspect she has underlying menieres although this diagnosis has never been made. Meclizine not helpful per the patient. Lorazepam may have helped in the ER. O/E PERRL, EOMI intact, no diplopia, no significant nystagmus, HS RRR, systolic murmur, Chest CTAB, Abdo SNT A/P Vertigo - ?underlying Meniere's, could consider diuretic such as acetazolomide longer term. FOr now will treat symptomatically with diazepam 5mg PRN. PG Care Time/CCT Total # of Minutes Spent Total Time Spent with Patient: Total time spent is greater than 50% in coordination of care (as documented) at patient's floor/unit and/or counseling patient: Coding [place] [address] INT INP/OBS CARE 2/55MIN Patient Type Established Medical Decision Making Moderate Complexity Diagnoses Vertigo R42 Chest pain R07.9 Bradycardia R00.1 Hypertension I10 Obstructive sleep apnea G47.33
[2023-06-12] MEDS ORDERED: ONDANSETRON INJ 2 MG/ML 2 ML VIAL IV PRN (17:14)
[2023-06-12] MEDS ORDERED: ACETAMINOPHEN 1,000 MG/100 ML VIAL IV STA (17:33)
[2023-06-12] MEDS ORDERED: FAMOTIDINE 20 MG in SYRINGE 3 ML IV STA (17:33)
--- NOTE | 2023-06-12 17:35 | Electrocardiogram Report ---
Test Reason : Blood Pressure : / mmHG Vent. Rate : 046 BPM Atrial Rate : 046 BPM P-R Int : 162 ms QRS Dur : 086 ms QT Int : 406 ms P-R-T Axes : 062 033 028 degrees QTc Int : 355 ms Sinus bradycardia Otherwise normal ECG When compared with ECG of 06-JUN-2023 22:43, Vent. rate has decreased BY 28 BPM Confirmed by Jorge Cardona ([id number]) on 06/12/2023 5:35:26 PM Referred By: Confirmed By:Ray Cardona
[2023-06-12] MEDS ORDERED: LORazepam 2 MG/1 ML VIAL IV PRN (17:37)
[2023-06-12] MEDS ORDERED: PANTOprazole 40 MG in SYRINGE 0 ML IV ONE (17:45)
[2023-06-12] MEDS ORDERED: oxyCODONE HCL IR 5 MG TAB (IMMEDIATE RELEASE) PO PRN (19:54)
[2023-06-12] MEDS ORDERED: amLODIPine BESYLATE 5 MG TAB PO SCH (21:00)
[2023-06-12] MEDS ORDERED: ENOXAPARIN INJ 40 MG/0.4 ML SYR SQ SCH (21:00)
[2023-06-12] MEDS: LACTATED RINGER'S 1,000 ML IV SCH (21:18)
[2023-06-12] MEDS: COLCHICINE 0.6 MG TAB PO SCH (21:19)
[2023-06-12] MEDS ORDERED: SODIUM CHLORIDE 0.65% NA SOLN 45 ML (OCEAN) PRN (21:28)
[2023-06-12] MEDS ORDERED: diazePAM INJ 5 MG/ML 2 ML CARP IV PRN (22:25)
[2023-06-12] MEDS ORDERED: diazePAM 2 MG TABLET PO PRN (22:59)
[2023-06-13] MEDS ORDERED: IBUPROFEN 600 MG TAB PO STA (02:37)
[2023-06-13] MEDS ORDERED: LEVOTHYROXINE SODIUM 50 MCG TABLET PO SCH (06:30)
[2023-06-13] MEDS: LACTATED RINGER'S 1,000 ML IV SCH (06:43)
--- NOTE | 2023-06-13 07:42 | Hospitalist Progress Note ---
Date of Service June 13, 2023 Assessment & Plan (1) Vertigo: (2) Chest pain: (3) Bradycardia: (4) Hypertension: Plan Vertigo acute on Chronic -Patient has a history of recurrent vertigo, had another episode this am which caused nausea and dry-heaving, this exacerbated her vertigo causing her to come to the ED -CT of the head was negative, no other focal neuro defects - IV fluids, Zofran prn and low dose of ativan -Valium 2 mg BID prn Chest pain: - hx of chronic epigastric/substernal chest pain -Her pain was exacerbated after she started to dry heave - Low suspicion for cardiac etiology at this time -Continue home colchicine - IV famotidine -Protonix 40 mg IV daily Bradycardia Was bradycardic with HR in the 40-50's earlier in the ED -Currently in NSR with HR 68 - currently not on rate medication Hypertension -Stable -Continue amlodipine and lisinopril Hypothyroidism - thyroid cancer S/P thyroidectomy in 2016 -Continue Levothyroxine 50 mcg - TSH: 4.849 Obstructive sleep apnea -Does not tolerate HS CPAP Dispo: Med-Tele DVT prophylaxis: Lovenox 40 mg sq Diet: Regular diet Admission and Anticipated Discharge Date Admission Date: June 12, 2023 Mary Jo Daniel is a 48 year old female with a PMH significant for previous thyroid cancer S/P thyroidectomy in 2016, HTN, WILLIE (non-compliant with HS CPAP), chronic BL chest/epigastric pain, heart palpitations, who presented to the [facility] ED on 06/12 for vertigo, vomiting, and chest pain. The patient was noted to be bradycardic with HR in the 40-50's but otherwise stable. Labs including CBC, CMP, and TSH were significant for a TSH of 4.89. Ct of the head was read as "No acute intracranial findings.". Chest xray was read as "No acute cardiopulmonary findings. No change in appearance of the chest.". Prior to admission the patient was given 0.5 mg IV ativan, 4 mg IV zofran, and 1L NSS. At the time of the exam the patient was lying in bed with her eyes closed, in no acute distress. She states that she has a long history of vertigo. This am she was in her normal state of health when she woke. She started going about her day and her vertigo started. This consists of dizziness, the room spinning when her eyes are open, sensation of ear fullness and tinnitus. She states that she has been prescribed meclizine in the past, but this does not help her symptoms. As her vertigo symptoms progressed she developed nausea and started to dry heave, she never had an actual episode of emesis. Since dry heaving the patient has been having increased cramping in the epigastric region. She states that this is similar to her chronic epigastric/chest pain but more severe and cramping. The initial treatment in the ED resolved her symptoms, however, once she got up to go to the bathroom her symptoms returned. Results & Data Results & Data Vital Signs (Past 12 Hours) Vital Signs Temp Pulse Pulse Resp BP Pulse Ox O2 Del Method 06/13/23 07:11 66 06/13/23 03:31 36.6 C 82 18 115/67 96 Room Air 06/12/23 21:58 90 06/12/23 21:17 88 06/12/23 23:03 36.7 C 86 16 118/68 96 Room Air 06/12/23 21:09 37.0 C 16 141/80 H 98 Room Air
[2023-06-13 08:11] LABS: Hematocrit (blood only) 36.2 % (37.0-47.0); Mean Corpuscular Hemoglobin 29.5 pg (25.0-34.0); Mean Corpuscular Volume 88.9 fL (80.0-100.0); Red Blood Count 4.07 M/uL (4.20-5.40)
[2023-06-13 08:12] LABS: Mean Corpuscular Hgb Conc 33.1 g/dL (32.0-36.0); Mean Platelet Volume 10.9 fL (9.4-12.4); Platelet Count 249 K/uL (130-400); RDW Coefficient of Variation 13.6 % (11.5-14.5); RDW Standard Deviation 44.6 fL (36.4-46.3)
[2023-06-13 08:31] LABS: Albumin Globulin Ratio 1.4 (0.9-2); Albumin Level 3.6 gm/dl (3.4-5.0); BUN Creatinine Ratio 27.3 (10-20); Bilirubin,Total 0.3 mg/dl (0.2-1.0); Creatinine Clr Calc Pharmacy 186.3 ml/min; Est GFR (African American) 128.6 ml/min; Est GFR (Non-African American) 110.9 ml/min; Globulin 2.5 gm/dl (2.5-4.0); Magnesium 2.1 mg/dl (1.7-2.4); Potassium 3.8 mmol/L (3.5-5.1); Total Protein 6.1 gm/dl (6.0-8.3)
[2023-06-13] MEDS ORDERED: FAMOTIDINE 20 MG in SYRINGE 3 ML IV SCH (09:00)
[2023-06-13] MEDS ORDERED: lisinopril 5 MG TAB PO SCH (09:00)
[2023-06-13] MEDS ORDERED: MULTIVITAMIN CHEWABLE TAB PO SCH (09:00)
[2023-06-13] MEDS: COLCHICINE 0.6 MG TAB PO SCH (09:08)
[2023-06-13] MEDS ORDERED: PANTOprazole 40 MG in SYRINGE 0 ML IV SCH (11:00)
--- NOTE | 2023-06-13 12:05 | Discharge Summary ---
Date of Service June 13, 2023 Admission HPI Per Admitting Provider Carla Daniel is a 48 year old female with a PMH significant for previous thyroid cancer S/P thyroidectomy in 2016, HTN, WILLIE (non-compliant with HS CPAP), chronic BL chest/epigastric pain, heart palpitations, who presented to the [facility] ED on 06/12 for vertigo, vomiting, and chest pain. The patient was noted to be bradycardic with HR in the 40-50's but otherwise stable. Labs including CBC, CMP, and TSH were significant for a TSH of 4.89. Ct of the head was read as "No acute intracranial findings.". Chest xray was read as "No acute cardiopulmonary findings. No change in appearance of the chest.". Prior to admission the patient was given 0.5 mg IV ativan, 4 mg IV zofran, and 1L NSS. At the time of the exam the patient was lying in bed with her eyes closed, in no acute distress. She states that she has a long history of vertigo. This am she was in her normal state of health when she woke. She started going about her day and her vertigo started. This consists of dizziness, the room spinning when her eyes are open, sensation of ear fullness and tinnitus. She states that she has been prescribed meclizine in the past, but this does not help her symptoms. As her vertigo symptoms progressed she developed nausea and started to dry heave, she never had an actual episode of emesis. Since dry heaving the patient has been having increased cramping in the epigastric region. She states that this is similar to her chronic epigastric/chest pain but more severe and cramping. The initial treatment in the ED resolved her symptoms, however, once she got up to go to the bathroom her symptoms returned. Admission Exam Per Admitting Provider Physical Exam: General:In no acute distress, stated age, non-toxic appearing HEENT:Normocephalic, atraumatic, no scleral icterus, pupils around round, symmetrical, and reactive to light, dry mucus membranes, trachea midline, no thyromegaly Chest/Pulm:No respiratory distress, symmetrical chest expansion, clear breath sounds throughout Cardiac:RRR, no murmurs noted Abdomen:Negative for ascites and bruising, normoactive bowel sounds, soft, tender to palpation in the epigastric region Musculoskeletal:Symmetrical and without signs of acute trauma, upper and lower extremities with full ROM, no atrophy, spasticity, or flaccidity Extremities:Radial, dorsalis pedis, and posterior tibial pulses are intact and symmetrical, no edema noted in the BL LE's Skin:Warm, dry, no rashes , lesions, or scars noted Neuro:Alert and oriented to person, place, month, year, and president, no focal defects, CN II-XII testedpatient noted to have left horizontal nystagmus BL,otherwise no acute findings, finger to nose test negative, no tremors noted Psych:No acute distress, calm and cooperative during the exam Principal Diagnosis Vertigo Discharge Exam Constitutional WD/WN, vitals as above Eyes PERRL, conjunctivae normal, anicteric sclerae Respiratory normal respiratory effort, lungs clear to auscultation Cardiovascular RRR, no murmur, no edema Gastrointestinal (Abdomen) normal bowel sounds, soft, nontender, no hepatosplenomegaly Musculoskeletal no cyanosis or clubbing, extremities motor strength 5/5 Skin no rashes, warm and dry Neurologic PERRL, EOMI, accommodation nl, no face palsy, no dysarthria Discharge Data Allergies Allergy/AdvReac Type Severity Reaction Status Date / Time adhesive tape Allergy Intermediate SKIN WILL Verified 06/12/23 15:31 PEEL OFF IF LEFT ON TOO LONG Consultations 06/12/23 15:25 ED Decision to Admit Stat Ordered Studies Chest X-Ray 06/12/23 12:44 XR chest 1V portable CLINICAL HISTORY: Chest pain, nonspecific COMPARISON STUDY: Chest radiograph June 06, 2023. Chest CTA June 07, 2023. FINDINGS: Lung volumes are normal. Lungs are clear. There is no pneumothorax or pleural effusion. Mild cardiomegaly is unchanged. Mediastinal contours are normal. There is no evidence for pulmonary edema. IMPRESSION: No acute cardiopulmonary findings. No change in appearance of the chest. ACT 112: Negative or not required by law. Electronically signed by: Ravin Dick M.D. 06/12/2023 1:[address] 06/12/23 13:58 CT OF THE HEAD WITHOUT CONTRAST CLINICAL HISTORY: vertigo COMPARISON STUDY: No previous studies for comparison. CT DOSE: 625.80 mGy.cm TECHNIQUE: Helical axial images of the head were obtained without IV contrast. Automated exposure control was utilized for the study. A dose lowering technique was utilized adhering to the principles of ALARA. FINDINGS: No acute intracranial hemorrhage, midline shift or mass effect is present. The ventricular system is unremarkable. The basal cisterns are patent. No extra-axial collections are present. There are no findings to suggest acute dural sinus thrombosis or acute territorial infarct. No significant calvarial abnormalities are present. IMPRESSION: No acute intracranial findings. ACT 112: Negative or not required by law. Electronically signed by: Ravin Dick M.D. 06/12/2023 2:58 PM Labs 06/12/23 06/12/23 06/12/23 12:44 12:44 12:44 WBC 8.72 RBC 4.38 Hgb 12.9 Hct 39.7 MCV 90.6 MCH 29.5 MCHC 32.5 RDW Std Deviation 45.3 RDW Coeff of Valerie 13.6 Plt Count 262 MPV 10.8 Immature Gran % (Auto) 0.3 Neut % (Auto) 82.9 Lymph % (Auto) 10.3 Bullock % (Auto) 4.7 Eos % (Auto) 1.5 Baso % (Auto) 0.3 Neut # (Auto) 7.22 H Lymph # (Auto) 0.90 L Bullock # (Auto) 0.41 Eos # (Auto) 0.13 Baso # (Auto) 0.03 Immature Gran # (Auto) 0.03 PT 10.8 INR 1.0 APTT 28.2 PTT Ratio 1.0 Sodium 136 Potassium 4.1 Chloride 104 Carbon Dioxide 26 Anion Gap 6 BUN 15 Creatinine 0.56 L Est Cr Clr Drug Dosing 185.4 Est GFR ( Amer) 127.8 Est GFR (Non-Af Amer) 110.3 BUN/Creatinine Ratio 26.8 H Glucose 116 H Calcium 9.3 Magnesium Total Bilirubin 0.4 AST 14 ALT 32 Alkaline Phosphatase 141 H Troponin I High Sens 4.8 Total Protein 7.3 Albumin 4.4 Globulin 2.9 Albumin/Globulin Ratio 1.5 TSH Free T4 06/12/23 06/12/23 06/12/23 12:44 13:10 13:10 WBC RBC Hgb Hct MCV MCH MCHC RDW Std Deviation RDW Coeff of Valerie Plt Count MPV Immature Gran % (Auto) Neut % (Auto) Lymph % (Auto) Bullock % (Auto) Eos % (Auto) Baso % (Auto) Neut # (Auto) Lymph # (Auto) Bullock # (Auto) Eos # (Auto) Baso # (Auto) Immature Gran # (Auto) PT INR APTT PTT Ratio Sodium Potassium Chloride Carbon Dioxide Anion Gap BUN Creatinine Est Cr Clr Drug Dosing Est GFR ( Amer) Est GFR (Non-Af Amer) BUN/Creatinine Ratio Glucose Calcium Magnesium 2.2 Total Bilirubin AST ALT Alkaline Phosphatase Troponin I High Sens Total Protein Albumin Globulin Albumin/Globulin Ratio TSH 4.849 H Free T4 0.69 06/13/23 06/13/23 07:49 07:49 WBC 6.40 RBC 4.07 L Hgb 12.0 Hct 36.2 L MCV 88.9 MCH 29.5 MCHC 33.1 RDW Std Deviation 44.6 RDW Coeff of Valerie 13.6 Plt Count 249 MPV 10.9 Immature Gran % (Auto) Neut % (Auto) Lymph % (Auto) Bullock % (Auto) Eos % (Auto) Baso % (Auto) Neut # (Auto) Lymph # (Auto) Bullock # (Auto) Eos # (Auto) Baso # (Auto) Immature Gran # (Auto) PT INR APTT PTT Ratio Sodium 140 Potassium 3.8 Chloride 108 H Carbon Dioxide 28 Anion Gap 4 BUN 15 Creatinine 0.55 L Est Cr Clr Drug Dosing 186.3 Est GFR ( Amer) 128.6 Est GFR (Non-Af Amer) 110.9 BUN/Creatinine Ratio 27.3 H Glucose 109 H Calcium 9.0 Magnesium 2.1 Total Bilirubin 0.3 AST 10 L ALT 23 Alkaline Phosphatase 113 H Troponin I High Sens Total Protein 6.1 Albumin 3.6 Globulin 2.5 Albumin/Globulin Ratio 1.4 TSH Free T4 06/12/23 13:58 CT head/brain wo con Stat Hospital Course (1) Vertigo: (2) Bradycardia: Robson Daniel is a 48 year old female with a PMH significant for previous thyroid cancer S/P thyroidectomy in 2016, HTN, WILLIE (non-compliant with HS CPAP), chronic BL chest/epigastric pain, heart palpitations, who presented to the [facility] ED on 06/12 for vertigo, vomiting, and chest pain. The patient was noted to be bradycardic with HR in the 40-50's but otherwise stable. Ct head negative. At this time the etiology of her vertigo is likely thought to be from labyrinthitis. She was treated symptomatically with IV fluids and Zofran prn. Her symptoms completely resolved by next morning. Patient was oriented about lifestyle changes and ENT follow up outpatient as well with PCP. Chest pain likely from chronic gastritis after r/o of cardiac etiology. Additionally, Fluticasone Nasal spray and Azelastine nasal spray was p rescribe for current sinusitis symptoms. Total Time Total Time Spent Total Time Spent (In Minutes): See attending attestation Discharge Plan Discharge Items Patient Disposition: Home - Self-Care Reason For Visit: VERTIGO, NAUSEA, VOMITING, CHEST PAIN Discharge Diagnosis: Vertigo Activity: Resume your previous activity Non-emergency contact: Primary Care Provider Call non-emergency contact if: you have any medication questions Follow-up/Referrals: Cortney Sarabia CRNP [Primary Care Provider] - (PLEASE CALL YOUR PRIMARY CARE PROVIDER TO SCHEDULE A HOSPITAL DISCHARGE FOLLOW-UP APPOINTMENT WITHIN 7-10 DAYS) Diet: Heart Healthy Addtl Attending Provider Instructions: You were here because of vertigo and dry-heaving symptoms associated with chest pain. Chest pain seem to be from chronic gastritis which was exacerbated by the dry-heave. Previous heart work up was negative. IV fluid and antinausea and antihistamine medication were given to you. Your symptoms resolved overnight You will be prescribe Fluticasone Nasal spray and Azelastine nasal spray for current sinusitis symptoms. Follow up with your ENT for re-evaluation of vertigo Follow up with your PCP within a week. Pending Studies at Discharge: No Stand-Alone Forms: [email or web address], Smoking Cessation Medications and DC Order Prescriptions: New fluticasone propionate 50 mcg/actuation spray,suspension 1 spray intranasal BID PRN (Reason: nasal congestion) Qty: 16 0RF Rx Instructions: administer into each nostril azelastine 137 mcg (0.1 %) aerosol,spray 1 spray intranasal BID Qty: 30 0RF Rx Instructions: administer into each nostril Continued ibuprofen 200 mg tablet 400 mg PO Q8H colchicine (gout) 0.6 mg tablet 0.6 mg PO BID Qty: 180 0RF amlodipine 5 mg tablet 5 mg PO HS medroxyprogesterone [Depo-Provera] 150 mg/mL Suspension 150 mg IM DIRECTED Rx Instructions: Q 10-12 WEEKS levothyroxine 50 mcg tablet 50 mcg PO QAM lisinopril 5 mg tablet 5 mg PO QAM diclofenac sodium 1 % gel 2 g TOPICAL DIRECTED PRN (Reason: Pain) oxycodone 10 mg tablet 10 mg PO DAILY PRN (Reason: Pain) Flintstones with Extra Iron 18 mg iron Tablet,Chewable 1 tab PO DAILY Discharge Orders: Discharge Order (Routine); Ordered 06/13/23 Ordered By: Maurice Osullivan Admission Data Admit Date/Time: 06/12/23 17:33 Attending Provider: Wanda Arana Admit Provider: Ivan Horton Primary Care Provider: Cortney Sarabia Other Providers: Ivan Horton Other Interventions: Discharge Summary Assessment (RN) Last Done: 06/13/23 13:24 Supervising Physician Co-Signing Physician Notes Resident Physician Supervision Note: I independently interviewed and examined the patient and verified the hendrix history and physical, reviewed labs and image studies and agree with resident findings and care plan. Resident Activity Tracking Resident Involvement: Resident Care Provided Care Provided: Adult Hospital Medicine
== END 2023-06-13 13:50 | disposition home or self-care (01) ==
LOC: ED 12:36 → 2N 12:36 → SUATTDRO 17:33 → 2N 18:32